=== PATIENT | male | born 1995 | race African-American/Black ===

== ENCOUNTER 2017-03-13 17:29 | Emergency (ER) | payer SELFPAY ==
[2017-03-13] MEDS ORDERED: Dexamethasone 4 mg/ml Vial ONE (18:47)
[2017-03-13] MEDS ORDERED: Ibuprofen 800 MG TAB ONE (18:57)
== END 2017-03-13 19:00 | disposition home or self-care (01) ==
LOC: ERS 17:29
DX: J02.0 Streptococcal pharyngitis (principal)
CPT/HCPCS: 87430; 99283; J1100

== ENCOUNTER 2017-03-14 15:58 | Emergency (ER) | payer SELFPAY ==
[2017-03-14] MEDS ORDERED: Dexamethasone 4 mg/ml Vial ONE (16:54)
[2017-03-14] MEDS ORDERED: Bicillin LA 2.4 MILL.UNITS/4 ML SYRINGE ONE (16:54)
== END 2017-03-14 17:47 | disposition home or self-care (01) ==
LOC: ERS 15:58
DX: J02.0 Streptococcal pharyngitis (principal); G60.0 Hereditary motor and sensory neuropathy
CPT/HCPCS: 96372; J0561; J1100

== ENCOUNTER 2018-05-02 21:43 | Emergency (ER) | payer SELFPAY ==
[2018-05-02] MEDS ORDERED: Azithromycin 250 MG TAB ONE (22:50)
[2018-05-02] MEDS ORDERED: cefTRIAXone\\ROCEPHIN 250 MG VIAL ONE (22:51)
[2018-05-02] MEDS ORDERED: Lidocaine 1% PF 5 ML VIAL ONE (22:51)
[2018-05-05 22:51] LABS: Chlamydia by PCR DETECTED (NotDetected); GC by PCR Not Detected (NotDetected)
== END 2018-05-02 23:19 | disposition home or self-care (01) ==
LOC: ERS 21:43
DX: Z20.2 Contact with and (suspected) exposure to infections with a predominantly sexual mode of transmission (principal)
CPT/HCPCS: 87491; 87591; 96372; J0696; J2001

== ENCOUNTER 2018-09-01 15:22 | Emergency (ER) | payer SELFPAY ==
[2018-09-01] MEDS ORDERED: Ibuprofen 800 MG TAB ONE (15:32)
[2018-09-01] MEDS ORDERED: Acetaminophen 500 MG TAB ONE (15:32)
== END 2018-09-01 15:50 | disposition home or self-care (01) ==
LOC: SCSER 15:22
DX: J06.9 Acute upper respiratory infection, unspecified (principal); J30.2 Other seasonal allergic rhinitis
CPT/HCPCS: 99283

== ENCOUNTER 2018-10-26 22:12 | Emergency (ER) | payer SELFPAY | END 2018-10-26 22:32 | disposition home or self-care (01) | LOC: SCSER 22:12 | DX: M79.604 Pain in right leg (principal) | CPT/HCPCS: 99281 ==

== ENCOUNTER 2019-03-10 17:56 | Emergency (ER) | payer BC, SELFPAY ==
[2019-03-10 19:30] LABS: #Basophils 0.1 thou/uL (0.0-0.2); #Eosinphils 0.4 thou/uL (0.0-0.7); #Lymphocytes 2.2 thou/uL (1.20-3.40); #Monocytes 0.4 thou/uL (0.11-0.59); #Neutrophils 4.2 thou/uL (1.40-6.50); %Basophils 0.9 % (0.0-1.0); %Eosinophils 5.7 % (0.0-10.0); %Lymphocytes 30.3 % (21.0-51.0); %Monocytes 5.9 % (0.0-10.0); %Neutrophils 57.2 % (42.0-75.0); Hemoglobin 14.3 g/dL (14.0-18.0); Mean Corpuscular Hemoglobin 30.8 pg (27.0-31.0); Mean Corpuscular Volume 90.5 fL (78.0-98.0); Mean Platelet Volume 6.8 fL (7.4-10.4); Platelet Count 331 thou/uL (130-400); RBC Distribution Width 11.4 % (11.5-14.5); Red Blood Cell (RBC) Count 4.65 mill/uL (4.70-6.10); White Blood Cell (WBC) Count 7.3 thou/uL (4.8-10.8)
[2019-03-10 19:52] LABS: ALT (SGPT) 40 U/L (8-55); AST (SGOT) 28 U/L (5-34); Albumin 4.5 g/dL (3.5-5.0); Alkaline Phosphatase 85 U/L (40-110); Anion Gap 12 mmol/L (10-20); BUN (Urea Nitrogen) 11 mg/dL (8.9-20.6); Bilirubin, Total 0.6 mg/dL (0.2-1.2); Calc. Creatinine Clearance 0 mL/min (70-130); Carbon Dioxide 29 mmol/L (22-29); Chloride 100 mmol/L (98-107); Estimated GFR-MDRD Greater than 90; Globulin 3.2 g/dL (2.4-3.5); Glucose 93 mg/dL (70-105); Lipase 43 U/L (8-78); Protein, Total 7.7 g/dL (6.0-8.3); Sodium 137 mmol/L (136-145)
== END 2019-03-10 20:28 | disposition home or self-care (01) ==
LOC: ERS 17:56
DX: K52.9 Noninfective gastroenteritis and colitis, unspecified (principal)
CPT/HCPCS: 36415; 80053; 83690; 85025; 99284

== ENCOUNTER 2019-03-25 15:42 | Emergency (ER) | payer BC | END 2019-03-25 16:13 | disposition home or self-care (01) | LOC: SCSER 15:42 | DX: R09.81 Nasal congestion (principal) | CPT/HCPCS: 99283 ==

== ENCOUNTER 2019-07-04 18:51 | Emergency (ER) | payer BC, SELFPAY ==
[2019-07-04] MEDS ORDERED: Azithromycin 250 MG TAB ONE (19:53)
[2019-07-04] MEDS ORDERED: cefTRIAXone\\ROCEPHIN 250 MG VIAL ONE ×2 (19:53→19:56)
== END 2019-07-04 20:01 | disposition home or self-care (01) ==
LOC: ERS 18:51
DX: Z20.2 Contact with and (suspected) exposure to infections with a predominantly sexual mode of transmission (principal); G60.0 Hereditary motor and sensory neuropathy
CPT/HCPCS: 96372; 99283; J0696

== ENCOUNTER 2020-07-24 20:06 | Emergency (ER) | payer OTHER, SELFPAY ==
[2020-07-24 21:21] LABS: Bacteria/HPF None Seen HPF (None Seen); Bilirubin Negative (Negative); Blood, Urine Trace (Negative); Clarity Turbid (Clear); Glucose, Urine (Dipstick) Normal (Negative); Ketone, Urine Negative (Negative); Leukocyte 500 Leu/uL (Negative); Nitrite Negative (Negative); Protein, Urine (Dipstick) 30 mg/dL (Neg-Trace); Specific Gravity, Urine 1.035 (1.002-1.036); Squamous Epithelial None Seen HPF (0-3); WBC/HPF Greater than 50 HPF (0-3)
[2020-07-24] MEDS ORDERED: cefTRIAXone\\ROCEPHIN 500 MG VIAL ONE (22:17)
[2020-07-25 22:15] LABS: Chlam.trachomatis by PCR,Urine Inconclusive (NotDetected)
== END 2020-07-24 22:38 | disposition home or self-care (01) ==
LOC: ERS 20:06
DX: N34.2 Other urethritis (principal)
CPT/HCPCS: 81003; 81015; 87491; 87591; 96372; 99283; J0696